=== PATIENT | female | born 1995 | race Caucasian/White ===

== ENCOUNTER 2019-02-06 16:53 | Emergency (ER) | payer BC, MEDICAID ==
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
[2019-02-06] MEDS ORDERED: Sodium Chloride 0.9% 1,000 ML IV ONE (17:02)
[2019-02-06] MEDS ORDERED: Sodium Chloride 0.9% 10 ML Syringe FLUSH PRN (17:02)
[2019-02-06 17:26] VITALS: BP 142/81
[2019-02-06 17:44] LABS: CHLORIDE,CL 107 mmol/L (98-115); SODIUM,NA 145 mmol/L (136-145)
[2019-02-06] MEDS ORDERED: cefTRIAXone 1 GM Vial IVPUSH ONE (19:11)
[2019-02-06] MEDS ORDERED: Phenazopyridine 100 MG Tab PO PRN (19:18)
== END 2019-02-06 19:37 | disposition home or self-care (01) ==
LOC: KA.ED 16:53
DX: N30.00 Acute cystitis without hematuria (principal); E86.0 Dehydration; I10 Essential (primary) hypertension; K21.9 Gastro-esophageal reflux disease without esophagitis; Z79.899 Other long term (current) drug therapy; Z88.8 Allergy status to other drugs, medicaments and biological substances
CPT/HCPCS: 80053; 81001; 83690; 84703; 85025; 87086; 96361; 96374; 99283; A9270; J0696; J7030

== ENCOUNTER 2019-02-14 20:08 | Emergency (ER) | payer BC ==
[2019-02-14 20:26] VITALS: BP 138/84
[2019-02-14] MEDS: Acetaminophen/HYDROcodone 325-5 MG Tab PO ONE (20:55)
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
== END 2019-02-14 21:10 | disposition home or self-care (01) ==
LOC: KA.ED 20:08
DX: S39.011A Strain of muscle, fascia and tendon of abdomen, initial encounter (principal); I10 Essential (primary) hypertension; K21.9 Gastro-esophageal reflux disease without esophagitis; Z88.8 Allergy status to other drugs, medicaments and biological substances; Z79.899 Other long term (current) drug therapy; X50.0XXA Overexertion from strenuous movement or load, initial encounter
CPT/HCPCS: 99283; A9270-GY

== ENCOUNTER 2019-04-24 23:34 | Emergency (ER) | payer BC ==
[2019-04-25] MEDS ORDERED: Sodium Chloride 0.9% 1,000 ML IV ONE
[2019-04-25] MEDS ORDERED: Sodium Chloride 0.9% 10 ML Syringe FLUSH PRN
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
[2019-04-25 00:39] LABS: ANION GAP 12.6 mmol/L (5-15); CHLORIDE,CL 106 mmol/L (98-115); SODIUM,NA 139 mmol/L (136-145)
[2019-04-25] MEDS ORDERED: Metoclopramide 10 MG/2 ML SDV IVPUSH ONE (00:44)
[2019-04-25 02:38] VITALS: BP 128/74
== END 2019-04-25 01:15 | disposition home or self-care (01) ==
LOC: KA.ED 23:34
DX: R10.84 Generalized abdominal pain (principal); I10 Essential (primary) hypertension; K21.9 Gastro-esophageal reflux disease without esophagitis; Z79.899 Other long term (current) drug therapy; Z88.8 Allergy status to other drugs, medicaments and biological substances
CPT/HCPCS: 80053; 81001; 83690; 84702; 85025; 96361; 96374; 99284-25; J2765; J7030

== ENCOUNTER 2020-06-07 12:14 | Emergency (ER) | payer BC ==
[2020-06-07] MEDS ORDERED: Sodium Chloride 0.9% 1,000 ML IV ONE (12:20)
[2020-06-07] MEDS ORDERED: Sodium Chloride 0.9% 10 ML Syringe FLUSH PRN (12:20)
[2020-06-07] MEDS ORDERED: HYDROmorphone 1 MG/ML Syringe IVPUSH ONE ×2 (12:20→13:54)
[2020-06-07 12:51] VITALS: BP 133/72; PULSE 77
[2020-06-07 12:55] LABS: ANION GAP 11.6 mmol/L (5-15); CHLORIDE,CL 104 mmol/L (98-115); SODIUM,NA 138 mmol/L (136-145)
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
[2020-06-07] MEDS ORDERED: HYDROmorphone 1 MG/ML Syringe ONE (13:54)
[2020-06-07] MEDS ORDERED: Iopamidol 755 Mg/ML 100 ML Bottle IV ONE (14:18)
[2020-06-07] MEDS ORDERED: Diatrizoate Meglumine/Diatrizoate Sodium 37% 30 ML Bottle PO ONE (14:18)
[2020-06-07] MEDS ORDERED: Sodium Chloride 0.9% 50 ML IV SCH (14:30)
[2020-06-07] MEDS ORDERED: Ondansetron 4 MG Tab.DIS PO ONE (14:58)
[2020-06-07] MEDS ORDERED: Omeprazole 20 MG Cap.CR PO ONE (15:03)
--- NOTE | 2020-06-07 15:19 | CT ---
[id number] CT/CT Abdomen Pelvis W IV EXAM: CT Abdomen Pelvis W IV CLINICAL DATA: MID-EPIGASTRIC PAIN, DIARRHEA, MILD ANEMIA. 17 MONTHS COMPARISON STUDY: August 06, 2019. FINDINGS: Dependent atelectasis at the lung bases bilaterally. Postsurgical changes following gastric bypass. No evidence of obstruction. No inflammation. The appendix is visualized and appears normal. There are multiple prominent mesenteric lymph nodes especially within the right lower quadrant. The liver, spleen, gallbladder, pancreas, adrenal glands and kidneys are unremarkable. No hydronephrosis or hydroureter. No suspicious renal lesions. No free fluid, or pneumoperitoneum. Scattered changes of spondylosis the spine. No fracture or osseous lesion. IMPRESSION: 1. The appendix is visualized and appears normal. There are multiple prominent right lower quadrant mesenteric lymph nodes. This is nonspecific and could be seen with mesenteric adenitis. Pradip Gerber DO 06/07/20 1517 Thank you for allowing us to participate in the care of your patient.
== END 2020-06-07 15:50 | disposition home or self-care (01) ==
LOC: KA.ED 12:14
DX: R10.13 Epigastric pain (principal); I10 Essential (primary) hypertension; E66.9 Obesity, unspecified; Z88.3 Allergy status to other anti-infective agents; Z88.8 Allergy status to other drugs, medicaments and biological substances; Z68.31 Body mass index [BMI] 31.0-31.9, adult
CPT/HCPCS: 36415; 74177; 80053; 81001; 81025; 83690; 85025; 87086; 96361; 96374; 96376; 99284; 99284-25; A9270-GY; J1170; J7030; J7050; Q9963; Q9967

== ENCOUNTER 2023-07-03 03:40 | Emergency (ER) | payer BC ==
[2023-07-03] MEDS: Sodium Chloride 0.9% 10 ML Syringe FLUSH PRN (04:05)
[2023-07-03] MEDS ORDERED: Sodium Chloride 0.9% 10 ML Syringe FLUSH PRN (04:08)
[2023-07-03] MEDS: Sodium Chloride 0.9% 1,000 ML IV ONE (04:16)
[2023-07-03 04:27] LABS: BASOPHILS ABSOLUTE AUTO 0.02 10^3/uL (0.00-0.10); BASOPHILS PERCENT AUTO 0.3 % (0.0-1.0); EOSINOPHILS ABSOLUTE AUTO 0.03 10^3/uL (0.10-0.30); EOSINOPHILS PERCENT AUTO 0.4 % (1.0-3.0); HEMATOCRIT 40.4 % (37.0-47.0); HEMOGLOBIN 13.2 g/dL (12.0-16.0); IMMATURE GRAN ABSOLUTE AUTO 0.01 10^3/uL (0.00-0.50); IMMATURE GRAN PERCENT AUTO 0.1 % (0.0-5.0); LYMPHOCYTES ABSOLUTE AUTO 0.36 10^3/uL (1.00-4.00); LYMPHOCYTES PERCENT AUTO 5.3 % (20.0-40.0); MEAN CORPUSCULAR HEMOGLOBIN 31.4 pg (27.0-31.0); MEAN CORPUSCULAR HGB CONC 32.7 g/dL (32.0-36.0); MEAN PLATELET VOLUME 10.1 fL (7.4-10.4); MONOCYTES ABSOLUTE AUTO 0.45 10^3/uL (0.10-0.80); MONOCYTES PERCENT AUTO 6.6 % (2.0-8.0); NEUTROPHILS ABSOLUTE AUTO 5.92 10^3/uL (2.50-7.00); NEUTROPHILS PERCENT AUTO 87.3 % (50.0-70.0); PLATELET COUNT,PLT 191 10^3/uL (150-400); RED BLOOD CELL COUNT 4.21 10^6/uL (3.80-5.50); RED CELL DISTRIBUTION WIDTH 12.6 % (11.5-14.5); WHITE BLOOD CELL COUNT,WBC 6.79 10^3/uL (5.00-10.00)
[2023-07-03] MEDS: Ondansetron 4 MG/2 ML SDV IVPUSH ONE (04:31)
[2023-07-03 04:32] LABS: APPEARANCE,URINE CLEAR (CLEAR); BILIRUBIN,URINE NEGATIVE (NEGATIVE); COLOR,URINE YELLOW (YELLOW); GLUCOSE,URINE NEGATIVE (NEGATIVE); KETONES,URINE NEGATIVE (NEGATIVE); LEUKOCYTE ESTERASE,URINE NEGATIVE (NEGATIVE); NITRITE,URINE NEGATIVE (NEGATIVE); OCCULT BLOOD,URINE TRACE-LYSED (NEGATIVE); PH,URINE 5.5 (5.0-9.0); PROTEIN,URINE 30 mg/dL (NEGATIVE); UROBILINOGEN,URINE 0.2 E.U./dL (0.2-1.0)
[2023-07-03] MEDS: Ketorolac 30 MG/ML SDV IVPUSH ONE (04:38)
[2023-07-03 04:39] LABS: BACTERIA,URINE RARE /HPF (NONE TO FEW); EPITHELIAL CELLS,URINE RARE /LPF; MUCUS,URINE FEW /LPF (NEGATIVE); RBC,URINE 0-5 /HPF (0-5); WBC,URINE 0-5 /HPF (0-5)
[2023-07-03 04:47] LABS: ALANINE AMINOTRANSFERASE,ALT 24 U/L (14-63); ALBUMIN 3.73 g/dL (3.40-5.00); ALKALINE PHOSPHATASE 61 U/L (46-116); AMYLASE 49 U/L (25-125); ANION GAP 16.6 mmol/L (5-15); ASPARTATE AMNIOTRANSFERASE,AST 17 U/L (15-37); BILIRUBIN TOTAL 0.3 mg/dL (0.2-1.0); BLOOD UREA NITROGEN,BUN 12 mg/dL (7-18); C-REACTIVE PROTEIN 9.2 mg/dL (0.0-0.9); CALCIUM 8.2 mg/dL (8.7-10.3); CARBON DIOXIDE,CO2 23.4 mmol/L (21.0-32.0); CHLORIDE,CL 101 mmol/L (98-107); CREATININE 0.66 mg/dL (0.51-1.17); GLUCOSE RANDOM 112 mg/dL (70-140); LIPASE 116 U/L (73-393); PROTEIN TOTAL,TP 7.1 g/dL (6.4-8.2); SODIUM,NA 137 mmol/L (136-145)
[2023-07-03 04:48] LABS: ESTIMATED GFR 122 mL/min (>=60); HCG QUANTITATIVE < 1 mIU/mL
[2023-07-03 04:52] VITALS: BP 132/82; PULSE 104
[2023-07-03] MEDS ORDERED: Naloxone 0.4 MG/ML SDV IVPUSH PRN (05:11)
[2023-07-03] MEDS: HYDROmorphone 1 MG/ML Syringe IVPUSH ONE (05:21)
[2023-07-03] MEDS: Sodium Chloride 0.9% 50 ML IV SCH (05:58)
[2023-07-03] MEDS: Iopamidol 755 Mg/ML 100 ML Bottle IV ONE (05:58)
[2023-07-03] MEDS: methylPREDNISolone Sodium Succinate 125 MG/2 ML SDV IVPUSH ONE (06:47)
== END 2023-07-03 07:05 | disposition home or self-care (01) ==
LOC: KA.ED 03:40
DX: K52.9 Noninfective gastroenteritis and colitis, unspecified (principal); I10 Essential (primary) hypertension; E66.9 Obesity, unspecified; Z68.34 Body mass index [BMI] 34.0-34.9, adult; Z88.8 Allergy status to other drugs, medicaments and biological substances
CPT/HCPCS: 36415; 74177; 80053; 81001; 82150; 83690; 84702; 85025; 86140; 96361; 96374; 96375; 99284; 99284-25; J1170; J1885; J2405; J2930; J3490; J7030; Q9967

== ENCOUNTER 2023-07-06 23:18 | Emergency (ER) | payer BC ==
[2023-07-06] MEDS ORDERED: Sodium Chloride 0.9% 1,000 ML IV ONE (23:22)
[2023-07-06] MEDS ORDERED: Sodium Chloride 0.9% 10 ML Syringe FLUSH PRN (23:23)
[2023-07-06] MEDS: Ondansetron 4 MG Tab.DIS PO ONE ×2 (23:26→23:29)
[2023-07-06] MEDS ORDERED: HYDROmorphone 1 MG/ML Syringe IVPUSH ONE (23:37)
[2023-07-06] MEDS ORDERED: HYDROmorphone 2 MG/ML Syringe ONE (23:39)
[2023-07-06 23:43] LABS: BASOPHILS ABSOLUTE AUTO 0.01 10^3/uL (0.00-0.10); BASOPHILS PERCENT AUTO 0.2 % (0.0-1.0); EOSINOPHILS ABSOLUTE AUTO 0.01 10^3/uL (0.10-0.30); EOSINOPHILS PERCENT AUTO 0.2 % (1.0-3.0); HEMATOCRIT 41.6 % (37.0-47.0); HEMOGLOBIN 13.5 g/dL (12.0-16.0); IMMATURE GRAN ABSOLUTE AUTO 0.02 10^3/uL (0.00-0.50); IMMATURE GRAN PERCENT AUTO 0.4 % (0.0-5.0); LYMPHOCYTES ABSOLUTE AUTO 0.67 10^3/uL (1.00-4.00); LYMPHOCYTES PERCENT AUTO 14.9 % (20.0-40.0); MEAN CORPUSCULAR HEMOGLOBIN 30.3 pg (27.0-31.0); MEAN CORPUSCULAR HGB CONC 32.5 g/dL (32.0-36.0); MEAN CORPUSCULAR VOLUME 93.5 fL (82.0-92.0); MEAN PLATELET VOLUME 9.6 fL (7.4-10.4); MONOCYTES ABSOLUTE AUTO 0.56 10^3/uL (0.10-0.80); MONOCYTES PERCENT AUTO 12.4 % (2.0-8.0); NEUTROPHILS ABSOLUTE AUTO 3.24 10^3/uL (2.50-7.00); NEUTROPHILS PERCENT AUTO 71.9 % (50.0-70.0); PLATELET COUNT,PLT 321 10^3/uL (150-400); RED BLOOD CELL COUNT 4.45 10^6/uL (3.80-5.50); RED CELL DISTRIBUTION WIDTH 12.2 % (11.5-14.5); WHITE BLOOD CELL COUNT,WBC 4.51 10^3/uL (5.00-10.00)
[2023-07-06] MEDS ORDERED: Promethazine 12.5 MG in Sodium Chloride 0.9% 100 ML IV PRN (23:49)
[2023-07-06] MEDS ORDERED: Loperamide 2 MG Cap PO PRN (23:50)
[2023-07-06 23:59] LABS: ALBUMIN 3.74 g/dL (3.40-5.00); BILIRUBIN TOTAL 0.3 mg/dL (0.2-1.0); CALCIUM 8.8 mg/dL (8.7-10.3); CARBON DIOXIDE,CO2 26.1 mmol/L (21.0-32.0); CREATININE 0.58 mg/dL (0.51-1.17); EST CRCL DRUG DOSING (CG) 128.78 mL/min; POTASSIUM,K 4.1 mmol/L (3.5-5.1); PROTEIN TOTAL,TP 7.7 g/dL (6.4-8.2)
[2023-07-07] MEDS ORDERED: Sodium Chloride 0.9% 1,000 ML IV ONE (00:51)
[2023-07-07 01:01] VITALS: PULSE 90
[2023-07-07] MEDS ORDERED: HYDROmorphone 1 MG/ML Syringe IVPUSH ONE (01:08)
[2023-07-07] MEDS ORDERED: HYDROmorphone 2 MG Tab PO PRN (02:09)
[2023-07-07 02:22] VITALS: BP 109/71
== END 2023-07-07 02:24 | disposition home or self-care (01) ==
LOC: KA.ED 23:18
DX: K52.9 Noninfective gastroenteritis and colitis, unspecified (principal); R79.82 Elevated C-reactive protein (CRP); E66.9 Obesity, unspecified; Z88.8 Allergy status to other drugs, medicaments and biological substances; Z86.16 Personal history of COVID-19; Z68.34 Body mass index [BMI] 34.0-34.9, adult
CPT/HCPCS: 36415; 80053; 85025; 86140; 87324; 87449; 96361; 96374; 96375; 96376; 99284; 99284-25; A9270-GY; J1170; J2550; J3490; J7030

== ENCOUNTER 2023-09-29 14:04 | Emergency (ER) | payer BC ==
[2023-09-29 14:38] LABS: BASOPHILS ABSOLUTE AUTO 0.04 10^3/uL (0.00-0.10); BASOPHILS PERCENT AUTO 0.6 % (0.0-1.0); EOSINOPHILS ABSOLUTE AUTO 0.09 10^3/uL (0.10-0.30); EOSINOPHILS PERCENT AUTO 1.2 % (1.0-3.0); HEMATOCRIT 37.2 % (37.0-47.0); HEMOGLOBIN 11.9 g/dL (12.0-16.0); IMMATURE GRAN ABSOLUTE AUTO 0.01 10^3/uL (0.00-0.50); IMMATURE GRAN PERCENT AUTO 0.1 % (0.0-5.0); LYMPHOCYTES ABSOLUTE AUTO 1.84 10^3/uL (1.00-4.00); LYMPHOCYTES PERCENT AUTO 25.5 % (20.0-40.0); MEAN CORPUSCULAR HEMOGLOBIN 29.6 pg (27.0-31.0); MEAN CORPUSCULAR VOLUME 92.5 fL (82.0-92.0); MEAN PLATELET VOLUME 9.4 fL (7.4-10.4); MONOCYTES ABSOLUTE AUTO 0.87 10^3/uL (0.10-0.80); MONOCYTES PERCENT AUTO 12.1 % (2.0-8.0); NEUTROPHILS ABSOLUTE AUTO 4.36 10^3/uL (2.50-7.00); NEUTROPHILS PERCENT AUTO 60.5 % (50.0-70.0); PLATELET COUNT,PLT 326 10^3/uL (150-400); RED BLOOD CELL COUNT 4.02 10^6/uL (3.80-5.50); RED CELL DISTRIBUTION WIDTH 13.4 % (11.5-14.5); WHITE BLOOD CELL COUNT,WBC 7.21 10^3/uL (5.00-10.00)
[2023-09-29 14:40] VITALS: BP 141/87
[2023-09-29 14:49] LABS: ANION GAP 15.7 mmol/L (5-15); CALCIUM 8.3 mg/dL (8.7-10.3); CARBON DIOXIDE,CO2 25.3 mmol/L (21.0-32.0); CREATININE 0.58 mg/dL (0.51-1.17); EST CRCL DRUG DOSING (CG) 130.2 mL/min
[2023-09-29 14:58] VITALS: PULSE 92
[2023-09-29] MEDS: predniSONE 20 MG Tab PO ONE (15:47)
== END 2023-09-29 15:58 | disposition home or self-care (01) ==
LOC: KA.ED 14:04
DX: J06.9 Acute upper respiratory infection, unspecified (principal); D50.8 Other iron deficiency anemias; I10 Essential (primary) hypertension; K21.9 Gastro-esophageal reflux disease without esophagitis; F17.210 Nicotine dependence, cigarettes, uncomplicated; E66.9 Obesity, unspecified; Z68.30 Body mass index [BMI] 30.0-30.9, adult; Z86.16 Personal history of COVID-19; Z88.8 Allergy status to other drugs, medicaments and biological substances; Z79.899 Other long term (current) drug therapy
CPT/HCPCS: 36415; 80048; 85025; 99283; J7512

== ENCOUNTER 2023-10-17 06:45 | Emergency (ER) | payer BC ==
[2023-10-17] MEDS ORDERED: LORazepam 0.5 MG Tab PO ONE ×3 (07:02→08:26)
[2023-10-17] MEDS ORDERED: Ondansetron 4 MG Tab.DIS PO ONE (07:32)
[2023-10-17 07:54] VITALS: BP 123/71; PULSE 80
== END 2023-10-17 08:38 | disposition home or self-care (01) ==
LOC: SUPCPDRO 06:45 → KA.ED 06:45
DX: F41.0 Panic disorder [episodic paroxysmal anxiety] (principal); R11.0 Nausea; I10 Essential (primary) hypertension; K21.9 Gastro-esophageal reflux disease without esophagitis; E66.9 Obesity, unspecified; M19.90 Unspecified osteoarthritis, unspecified site; Z86.16 Personal history of COVID-19; Z79.899 Other long term (current) drug therapy; Z88.8 Allergy status to other drugs, medicaments and biological substances; Z88.1 Allergy status to other antibiotic agents; Z91.018 Allergy to other foods; Z68.41 Body mass index [BMI] 40.0-44.9, adult
CPT/HCPCS: 99283; A9270

== ENCOUNTER 2024-09-07 03:38 | Emergency (ER) | payer SELFPAY ==
[~2024-09-07 03:38] MED LIST: Ondansetron 4 MG/2 ML SDV ONE; Sodium Chloride 0.9% 1,000 ML ONE
[2024-09-07] MEDS: Sodium Chloride 0.9% 1,000 ML IV ONE (04:02)
[2024-09-07] MEDS: Ondansetron 4 MG/2 ML SDV IVPUSH ONE (04:02)
[2024-09-07] MEDS ORDERED: Sodium Chloride 0.9% 10 ML Syringe FLUSH PRN (04:04)
[2024-09-07 04:22] LABS: BASOPHILS ABSOLUTE AUTO 0.03 10^3/uL (0.00-0.10); BASOPHILS PERCENT AUTO 0.8 % (0.0-1.0); EOSINOPHILS ABSOLUTE AUTO 0.04 10^3/uL (0.10-0.30); HEMATOCRIT 32.2 % (37.0-47.0); HEMOGLOBIN 9.9 g/dL (12.0-16.0); IMMATURE GRAN ABSOLUTE AUTO 0.01 10^3/uL (0.00-0.50); IMMATURE GRAN PERCENT AUTO 0.3 % (0.0-5.0); LYMPHOCYTES ABSOLUTE AUTO 1.41 10^3/uL (1.00-4.00); LYMPHOCYTES PERCENT AUTO 36.4 % (20.0-40.0); MEAN CORPUSCULAR HEMOGLOBIN 24.2 pg (27.0-31.0); MEAN CORPUSCULAR HGB CONC 30.7 g/dL (32.0-36.0); MEAN CORPUSCULAR VOLUME 78.7 fL (82.0-92.0); MEAN PLATELET VOLUME 9.8 fL (7.4-10.4); MONOCYTES ABSOLUTE AUTO 0.59 10^3/uL (0.10-0.80); MONOCYTES PERCENT AUTO 15.2 % (2.0-8.0); NEUTROPHILS ABSOLUTE AUTO 1.79 10^3/uL (2.50-7.00); NEUTROPHILS PERCENT AUTO 46.3 % (50.0-70.0); PLATELET COUNT,PLT 250 10^3/uL (150-400); RED BLOOD CELL COUNT 4.09 10^6/uL (3.80-5.50); RED CELL DISTRIBUTION WIDTH 14.9 % (11.5-14.5); WHITE BLOOD CELL COUNT,WBC 3.87 10^3/uL (5.00-10.00)
[2024-09-07] MEDS: Metoclopramide 10 MG/2 ML SDV ONE (04:23)
[2024-09-07] MEDS: Metoclopramide 10 MG/2 ML SDV IVPUSH ONE (04:24)
[2024-09-07 04:36] LABS: ALANINE AMINOTRANSFERASE,ALT 50 U/L (14-63); ALBUMIN 3.54 g/dL (3.40-5.00); ALKALINE PHOSPHATASE 75 U/L (46-116); ASPARTATE AMNIOTRANSFERASE,AST 41 U/L (15-37); BILIRUBIN TOTAL 0.4 mg/dL (0.2-1.0); BLOOD UREA NITROGEN,BUN 8 mg/dL (7-18); CALCIUM 8.4 mg/dL (8.7-10.3); CARBON DIOXIDE,CO2 23.7 mmol/L (21.0-32.0); CHLORIDE,CL 102 mmol/L (98-107); CREATININE 0.61 mg/dL (0.51-1.17); EST CRCL DRUG DOSING (CG) 120.24 mL/min; GLUCOSE RANDOM 106 mg/dL (70-140); LIPASE 30 U/L (16-77); POTASSIUM,K 3.7 mmol/L (3.5-5.1); PROTEIN TOTAL,TP 6.8 g/dL (6.4-8.2); SODIUM,NA 138 mmol/L (136-145)
[2024-09-07] MEDS: diphenhydrAMINE 50 MG/ML SDV IVPUSH ONE (04:36)
[2024-09-07 04:37] LABS: ESTIMATED GFR 123 mL/min (>=60)
[2024-09-07 04:38] LABS: APPEARANCE,URINE CLOUDY (CLEAR); BILIRUBIN,URINE SMALL (NEGATIVE); COLOR,URINE YELLOW (YELLOW); GLUCOSE,URINE NEGATIVE (NEGATIVE); KETONES,URINE NEGATIVE (NEGATIVE); LEUKOCYTE ESTERASE,URINE NEGATIVE (NEGATIVE); NITRITE,URINE NEGATIVE (NEGATIVE); OCCULT BLOOD,URINE NEGATIVE (NEGATIVE); PROTEIN,URINE 30 mg/dL (NEGATIVE)
[2024-09-07 04:44] LABS: HCG QUALITATIVE,SERUM NEGATIVE (NEGATIVE)
[2024-09-07 04:48] LABS: RBC,URINE 0-5 /HPF (0-5)
[2024-09-07 04:49] LABS: BACTERIA,URINE FEW /HPF (NONE TO FEW); EPITHELIAL CELLS,URINE MODERATE /LPF; MUCUS,URINE MANY /LPF (NEGATIVE); WBC,URINE 0-5 /HPF (0-5)
[2024-09-07 05:04] VITALS: BP 153/89; PULSE 78
== END 2024-09-07 05:20 | disposition home or self-care (01) ==
LOC: KA.ED 03:38
DX: K52.1 Toxic gastroenteritis and colitis (principal); I10 Essential (primary) hypertension; Z68.45 Body mass index [BMI] 70 or greater, adult; E66.9 Obesity, unspecified; Z86.16 Personal history of COVID-19; Z88.9 Allergy status to unspecified drugs, medicaments and biological substances; Z88.3 Allergy status to other anti-infective agents; Z88.1 Allergy status to other antibiotic agents; Z91.018 Allergy to other foods
CPT/HCPCS: 80053; 81001; 83690; 84703; 85025; 96361; 96374; 96375; 99284-25; J1200; J2405; J2765; J7030

== ENCOUNTER 2024-12-14 17:51 | Inpatient (IN) | payer SELFPAY ==
[2024-12-14] MEDS: Sodium Chloride 0.9% 10 ML Syringe FLUSH PRN (18:09)
[2024-12-14 18:16] LABS: BASOPHILS ABSOLUTE AUTO 0.04 10^3/uL (0.00-0.10); BASOPHILS PERCENT AUTO 1.2 % (0.0-1.0); EOSINOPHILS ABSOLUTE AUTO 0.03 10^3/uL (0.10-0.30); EOSINOPHILS PERCENT AUTO 0.9 % (1.0-3.0); HEMATOCRIT 33.1 % (37.0-47.0); IMMATURE GRAN ABSOLUTE AUTO 0.01 10^3/uL (0.00-0.04); IMMATURE GRAN PERCENT AUTO 0.3 % (0.0-0.4); LYMPHOCYTES ABSOLUTE AUTO 1.78 10^3/uL (1.00-4.00); LYMPHOCYTES PERCENT AUTO 54.8 % (20.0-40.0); MEAN CORPUSCULAR HEMOGLOBIN 23.9 pg (27.0-31.0); MEAN CORPUSCULAR HGB CONC 30.2 g/dL (32.0-36.0); MEAN CORPUSCULAR VOLUME 79.2 fL (82.0-92.0); MEAN PLATELET VOLUME 9.2 fL (7.4-10.4); MONOCYTES ABSOLUTE AUTO 0.38 10^3/uL (0.10-0.80); MONOCYTES PERCENT AUTO 11.7 % (2.0-8.0); NEUTROPHILS ABSOLUTE AUTO 1.01 10^3/uL (2.50-7.00); NEUTROPHILS PERCENT AUTO 31.1 % (50.0-70.0); PLATELET COUNT,PLT 134 10^3/uL (150-400); RED BLOOD CELL COUNT 4.18 10^6/uL (3.80-5.50); WHITE BLOOD CELL COUNT,WBC 3.25 10^3/uL (5.00-10.00)
[2024-12-14] MEDS: Sodium Chloride 0.9% 1,000 ML IV ONE (18:18)
[2024-12-14] MEDS: LORazepam 2 MG/ML SDV IVPUSH ONE (18:20)
[2024-12-14 18:32] LABS: ALANINE AMINOTRANSFERASE,ALT 75 U/L (14-63); ALBUMIN 3.16 g/dL (3.40-5.00); ALKALINE PHOSPHATASE 101 U/L (46-116); ASPARTATE AMNIOTRANSFERASE,AST 170 U/L (15-37); BILIRUBIN TOTAL 0.3 mg/dL (0.2-1.0); BLOOD UREA NITROGEN,BUN 4 mg/dL (7-18); CALCIUM 8.7 mg/dL (8.7-10.3); CARBON DIOXIDE,CO2 30.3 mmol/L (21.0-32.0); CHLORIDE,CL 104 mmol/L (98-107); CREATININE 0.61 mg/dL (0.51-1.17); ESTIMATED GFR 123 mL/min (>=60); GLUCOSE RANDOM 106 mg/dL (70-140); LIPASE 48 U/L (16-77); POTASSIUM,K 4.3 mmol/L (3.5-5.1); PROTEIN TOTAL,TP 6.8 g/dL (6.4-8.2); SODIUM,NA 146 mmol/L (136-145)
[2024-12-14 18:33] LABS: ETHANOL BLOOD MEDICAL 310 mg/dL (<3)
[2024-12-14 18:57] LABS: APPEARANCE,URINE CLEAR (CLEAR); BILIRUBIN,URINE NEGATIVE (NEGATIVE); COLOR,URINE LIGHT YELLOW (YELLOW); GLUCOSE,URINE NEGATIVE (NEGATIVE); KETONES,URINE NEGATIVE (NEGATIVE); LEUKOCYTE ESTERASE,URINE NEGATIVE (NEGATIVE); NITRITE,URINE NEGATIVE (NEGATIVE); OCCULT BLOOD,URINE TRACE-INTACT (NEGATIVE); PROTEIN,URINE NEGATIVE (NEGATIVE); UROBILINOGEN,URINE 0.2 E.U./dL (0.2-1.0)
[2024-12-14 19:08] LABS: AMPHETAMINES SCREEN, URINE NEGATIVE (NEGATIVE); BARBITURATE SCREEN,URINE NEGATIVE (NEGATIVE); BENZODIAZEPINES SCREEN,URINE NEGATIVE (NEGATIVE); COCAINE METABOLITES,URINE NEGATIVE (NEGATIVE); METHADONE SCREEN, URINE NEGATIVE (NEGATIVE); METHAMPHETAMINES SCREEN, URINE NEGATIVE (NEGATIVE); OXYCODONE SCREEN,URINE NEGATIVE (NEGATIVE); PCP SCREEN,URINE NEGATIVE (NEGATIVE); TCA SCREEN,URINE NEGATIVE (NEGATIVE); THC SCREEN,URINE 50 NG/ML NEGATIVE (NEGATIVE)
[2024-12-14] MEDS: LORazepam 0.5 MG Tab PO SCH (21:16)
[2024-12-14] MEDS: Acetaminophen 500 MG Tab PO PRN (22:08)
[2024-12-14] MEDS: Dextrose 5%-0.45% NaCl 1,000 ML IV SCH (22:08)
[2024-12-14] MEDS: Ondansetron 4 MG/2 ML SDV IVPUSH PRN (22:56)
[2024-12-14] MEDS: LORazepam 2 MG/ML SDV IV PRN (22:57)
[2024-12-15 07:36] LABS: BASOPHILS ABSOLUTE AUTO 0.01 10^3/uL (0.00-0.10); BASOPHILS PERCENT AUTO 0.4 % (0.0-1.0); EOSINOPHILS ABSOLUTE AUTO 0.04 10^3/uL (0.10-0.30); EOSINOPHILS PERCENT AUTO 1.7 % (1.0-3.0); HEMATOCRIT 28.3 % (37.0-47.0); HEMOGLOBIN 8.6 g/dL (12.0-16.0); LYMPHOCYTES ABSOLUTE AUTO 0.95 10^3/uL (1.00-4.00); LYMPHOCYTES PERCENT AUTO 39.4 % (20.0-40.0); MEAN CORPUSCULAR HEMOGLOBIN 24.2 pg (27.0-31.0); MEAN CORPUSCULAR HGB CONC 30.4 g/dL (32.0-36.0); MEAN CORPUSCULAR VOLUME 79.7 fL (82.0-92.0); MEAN PLATELET VOLUME 9.3 fL (7.4-10.4); MONOCYTES ABSOLUTE AUTO 0.32 10^3/uL (0.10-0.80); MONOCYTES PERCENT AUTO 13.3 % (2.0-8.0); NEUTROPHILS ABSOLUTE AUTO 1.09 10^3/uL (2.50-7.00); NEUTROPHILS PERCENT AUTO 45.2 % (50.0-70.0); PLATELET COUNT,PLT 86 10^3/uL (150-400); RED BLOOD CELL COUNT 3.55 10^6/uL (3.80-5.50); RED CELL DISTRIBUTION WIDTH 16.1 % (11.5-14.5); WHITE BLOOD CELL COUNT,WBC 2.41 10^3/uL (5.00-10.00)
[2024-12-15 07:48] LABS: ALBUMIN 2.68 g/dL (3.40-5.00); ANION GAP 11.4 mmol/L (5-15); BILIRUBIN TOTAL 0.7 mg/dL (0.2-1.0); CARBON DIOXIDE,CO2 29.8 mmol/L (21.0-32.0); CREATININE 0.65 mg/dL (0.51-1.17); EST CRCL DRUG DOSING (CG) 112.84 mL/min; POTASSIUM,K 4.2 mmol/L (3.5-5.1); PROTEIN TOTAL,TP 5.8 g/dL (6.4-8.2)
[2024-12-15] MEDS: Thiamine 100 MG Tab PO SCH (08:06)
[2024-12-15] MEDS: Folic Acid 1 MG Tab PO SCH (08:06)
[2024-12-16 09:22] LABS: BASOPHILS ABSOLUTE AUTO 0.02 10^3/uL (0.00-0.10); BASOPHILS PERCENT AUTO 0.8 % (0.0-1.0); EOSINOPHILS ABSOLUTE AUTO 0.05 10^3/uL (0.10-0.30); EOSINOPHILS PERCENT AUTO 2.1 % (1.0-3.0); HEMATOCRIT 30.6 % (37.0-47.0); HEMOGLOBIN 9.3 g/dL (12.0-16.0); LYMPHOCYTES ABSOLUTE AUTO 0.88 10^3/uL (1.00-4.00); LYMPHOCYTES PERCENT AUTO 36.8 % (20.0-40.0); MEAN CORPUSCULAR HEMOGLOBIN 24.5 pg (27.0-31.0); MEAN CORPUSCULAR HGB CONC 30.4 g/dL (32.0-36.0); MEAN CORPUSCULAR VOLUME 80.5 fL (82.0-92.0); MEAN PLATELET VOLUME 9.7 fL (7.4-10.4); MONOCYTES ABSOLUTE AUTO 0.33 10^3/uL (0.10-0.80); MONOCYTES PERCENT AUTO 13.8 % (2.0-8.0); NEUTROPHILS ABSOLUTE AUTO 1.11 10^3/uL (2.50-7.00); NEUTROPHILS PERCENT AUTO 46.5 % (50.0-70.0); PLATELET COUNT,PLT 100 10^3/uL (150-400); RED CELL DISTRIBUTION WIDTH 16.1 % (11.5-14.5); WHITE BLOOD CELL COUNT,WBC 2.39 10^3/uL (5.00-10.00)
[2024-12-16 09:36] LABS: ANION GAP 14.8 mmol/L (5-15); CALCIUM 8.4 mg/dL (8.7-10.3); CARBON DIOXIDE,CO2 29.8 mmol/L (21.0-32.0); CREATININE 0.71 mg/dL (0.51-1.17); EST CRCL DRUG DOSING (CG) 103.31 mL/min; POTASSIUM,K 3.6 mmol/L (3.5-5.1)
[2024-12-16] MEDS ORDERED: hydrALAZINE 20 MG/ML SDV IVPUSH PRN (10:23)
[2024-12-16] MEDS: Pantoprazole 40 MG Tab.CR PO SCH (11:14)
[2024-12-16 19:25] VITALS: BP 144/104; PULSE 129
[2024-12-16] MEDS ORDERED: Labetalol 100 MG/20 ML MDV IVPUSH PRN (19:29)
[2024-12-16] MEDS: chlordiazePOXIDE 25 MG Cap PO SCH (19:51)
[2024-12-16] MEDS: Thiamine 500 MG in Sodium Chloride 0.9% 100 ML IV SCH (20:02)
[2024-12-16] MEDS: Sodium Chloride 0.9% 1,000 ML IV ONE (20:03)
[2024-12-16] MEDS: Dextrose 5%-0.9% NaCl 1,000 ML IV SCH (20:45)
[2024-12-17] MEDS ORDERED: Pantoprazole 40 MG Tab.CR PO SCH (10:18)
[2024-12-17] MEDS ORDERED: chlordiazePOXIDE 25 MG Cap PO SCH (19:30)
== END 2024-12-16 21:08 | DRG 897 ==
LOC: KA.ED 17:51 → KA.MS 19:22
PROVIDERS: ADMIT Family Medicine; ATTEND Family Medicine
DX: F10.131 Alcohol abuse with withdrawal delirium (principal); Z68.42 Body mass index [BMI] 45.0-49.9, adult; D61.818 Other pancytopenia; M19.90 Unspecified osteoarthritis, unspecified site; I10 Essential (primary) hypertension; F41.9 Anxiety disorder, unspecified; H54.7 Unspecified visual loss; F32.A Depression, unspecified; E66.9 Obesity, unspecified; R74.01 Elevation of levels of liver transaminase levels; D50.9 Iron deficiency anemia, unspecified; R79.89 Other specified abnormal findings of blood chemistry; Z88.8 Allergy status to other drugs, medicaments and biological substances; Z79.1 Long term (current) use of non-steroidal anti-inflammatories (NSAID); Z79.899 Other long term (current) drug therapy; Z98.890 Other specified postprocedural states; Z98.84 Bariatric surgery status; Z86.16 Personal history of COVID-19; Z87.81 Personal history of (healed) traumatic fracture
CPT/HCPCS: 36415; 80048; 80053; 80305-QW; 80307; 81003; 81025; 83690; 85025; 85046; 85610; 96361; 96374; 99284; 99285-25; A9270-GY; J2060; J2405; J3411; J7030; J7042; J7799; Q3014

== ENCOUNTER 2025-01-18 17:24 | Observation (INO) | payer MEDICAID ==
[2025-01-18] MEDS ORDERED: Sodium Chloride 0.9% 10 ML Syringe FLUSH PRN (17:32)
[2025-01-18 18:10] LABS: BASOPHILS ABSOLUTE AUTO 0.05 10^3/uL (0.00-0.10); BASOPHILS PERCENT AUTO 0.8 % (0.0-1.0); EOSINOPHILS ABSOLUTE AUTO 0.02 10^3/uL (0.10-0.30); EOSINOPHILS PERCENT AUTO 0.3 % (1.0-3.0); HEMATOCRIT 35.5 % (37.0-47.0); HEMOGLOBIN 11.2 g/dL (12.0-16.0); IMMATURE GRAN ABSOLUTE AUTO 0.01 10^3/uL (0.00-0.04); IMMATURE GRAN PERCENT AUTO 0.2 % (0.0-0.4); LYMPHOCYTES ABSOLUTE AUTO 2.74 10^3/uL (1.00-4.00); LYMPHOCYTES PERCENT AUTO 45.7 % (20.0-40.0); MEAN CORPUSCULAR HEMOGLOBIN 24.1 pg (27.0-31.0); MEAN CORPUSCULAR HGB CONC 31.5 g/dL (32.0-36.0); MEAN CORPUSCULAR VOLUME 76.5 fL (82.0-92.0); MEAN PLATELET VOLUME 9.7 fL (7.4-10.4); MONOCYTES ABSOLUTE AUTO 0.42 10^3/uL (0.10-0.80); NEUTROPHILS ABSOLUTE AUTO 2.75 10^3/uL (2.50-7.00); PLATELET COUNT,PLT 315 10^3/uL (150-400); RED BLOOD CELL COUNT 4.64 10^6/uL (3.80-5.50); RED CELL DISTRIBUTION WIDTH 15.7 % (11.5-14.5); WHITE BLOOD CELL COUNT,WBC 5.99 10^3/uL (5.00-10.00)
[2025-01-18] MEDS: Sodium Chloride 0.9% 1,000 ML IV ONE (18:10)
[2025-01-18 18:25] LABS: ALBUMIN 3.53 g/dL (3.40-5.00); ANION GAP 21.2 mmol/L (5-15); BILIRUBIN TOTAL 0.2 mg/dL (0.2-1.0); CALCIUM 8.7 mg/dL (8.7-10.3); CARBON DIOXIDE,CO2 22.9 mmol/L (21.0-32.0); CREATININE 0.6 mg/dL (0.51-1.17); EST CRCL DRUG DOSING (CG) 123.48 mL/min; MAGNESIUM 1.7 mg/dL (1.8-2.4); POTASSIUM,K 3.1 mmol/L (3.5-5.1); PROTEIN TOTAL,TP 7.3 g/dL (6.4-8.2)
[2025-01-18] MEDS: Ondansetron 4 MG/2 ML SDV IVPUSH ONE (18:38)
[2025-01-18] MEDS: Folic Acid 50 MG/10 ML MDV IV STA (19:13)
[2025-01-18] MEDS: D5 1/2 NS w/ 40 mEq/L KCl 1,000 ML IV SCH (19:14)
[2025-01-18] MEDS: Thiamine 100 MG in Sodium Chloride 0.9% 100 ML IV ONE (19:15)
[2025-01-18] MEDS: Metoclopramide 10 MG/2 ML SDV IVPUSH ONE (19:18)
[2025-01-18] MEDS: Magnesium Sulf/Wat 2 GM/50 mL 2 GM in Premix Bag 1 BAG IV ONE (20:20)
[2025-01-18 20:53] VITALS: BP 135/71; PULSE 69
[2025-01-19 02:16] LABS: APPEARANCE,URINE CLEAR (CLEAR); BILIRUBIN,URINE NEGATIVE (NEGATIVE); COLOR,URINE YELLOW (YELLOW); GLUCOSE,URINE NEGATIVE (NEGATIVE); KETONES,URINE NEGATIVE (NEGATIVE); LEUKOCYTE ESTERASE,URINE NEGATIVE (NEGATIVE); NITRITE,URINE NEGATIVE (NEGATIVE); OCCULT BLOOD,URINE NEGATIVE (NEGATIVE); PROTEIN,URINE NEGATIVE (NEGATIVE); UROBILINOGEN,URINE 0.2 E.U./dL (0.2-1.0)
[2025-01-19 02:28] LABS: AMPHETAMINES SCREEN, URINE NEGATIVE (NEGATIVE); BARBITURATE SCREEN,URINE NEGATIVE (NEGATIVE); BENZODIAZEPINES SCREEN,URINE NEGATIVE (NEGATIVE); COCAINE METABOLITES,URINE NEGATIVE (NEGATIVE); METHADONE SCREEN, URINE NEGATIVE (NEGATIVE); METHAMPHETAMINES SCREEN, URINE NEGATIVE (NEGATIVE); OXYCODONE SCREEN,URINE NEGATIVE (NEGATIVE); PCP SCREEN,URINE NEGATIVE (NEGATIVE); TCA SCREEN,URINE NEGATIVE (NEGATIVE); THC SCREEN,URINE 50 NG/ML NEGATIVE (NEGATIVE)
== END 2025-01-18 20:46 | disposition left against medical advice (07) ==
LOC: KA.ED 17:24 → KA.MS 20:41
PROVIDERS: ADMIT Internal Medicine; ATTEND Internal Medicine
DX: F10.921 Alcohol use, unspecified with intoxication delirium (principal); I10 Essential (primary) hypertension; E66.9 Obesity, unspecified; Z53.29 Procedure and treatment not carried out because of patient's decision for other reasons; Z88.8 Allergy status to other drugs, medicaments and biological substances; Z68.30 Body mass index [BMI] 30.0-30.9, adult; Z79.899 Other long term (current) drug therapy
CPT/HCPCS: 36415; 80053; 80305; 80307; 81003; 81025; 83690; 83735; 85025; 96361; 96365; 96368; 96375; 99283; 99285; J2405; J2765; J3411; J3475; J3480; J7030; J3490

== ENCOUNTER 2025-01-19 10:35 | Inpatient (IN) | payer MEDICAID ==
[2025-01-19] MEDS: Ondansetron 4 MG/2 ML SDV IVPUSH ONE ×3 (11:26→18:03)
[2025-01-19] MEDS: LORazepam 2 MG/ML SDV IVPUSH ONE ×2 (11:29→13:57)
[2025-01-19 11:31] LABS: BASOPHILS ABSOLUTE AUTO 0.03 10^3/uL (0.00-0.10); BASOPHILS PERCENT AUTO 0.4 % (0.0-1.0); EOSINOPHILS ABSOLUTE AUTO 0.01 10^3/uL (0.10-0.30); EOSINOPHILS PERCENT AUTO 0.1 % (1.0-3.0); HEMATOCRIT 30.7 % (37.0-47.0); HEMOGLOBIN 9.5 g/dL (12.0-16.0); IMMATURE GRAN ABSOLUTE AUTO 0.01 10^3/uL (0.00-0.04); IMMATURE GRAN PERCENT AUTO 0.1 % (0.0-0.4); LYMPHOCYTES ABSOLUTE AUTO 1.12 10^3/uL (1.00-4.00); MEAN CORPUSCULAR HEMOGLOBIN 23.8 pg (27.0-31.0); MEAN CORPUSCULAR HGB CONC 30.9 g/dL (32.0-36.0); MEAN CORPUSCULAR VOLUME 76.9 fL (82.0-92.0); MEAN PLATELET VOLUME 9.8 fL (7.4-10.4); MONOCYTES ABSOLUTE AUTO 0.58 10^3/uL (0.10-0.80); MONOCYTES PERCENT AUTO 8.3 % (2.0-8.0); NEUTROPHILS ABSOLUTE AUTO 5.25 10^3/uL (2.50-7.00); NEUTROPHILS PERCENT AUTO 75.1 % (50.0-70.0); PLATELET COUNT,PLT 235 10^3/uL (150-400); RED BLOOD CELL COUNT 3.99 10^6/uL (3.80-5.50)
[2025-01-19] MEDS: Sodium Chloride 0.9% 1,000 ML IV ONE (11:35)
[2025-01-19 12:07] LABS: ALANINE AMINOTRANSFERASE,ALT 272 U/L (14-63); ALBUMIN 3.47 g/dL (3.40-5.00); ALKALINE PHOSPHATASE 106 U/L (46-116); ANION GAP 18.2 mmol/L (5-15); ASPARTATE AMNIOTRANSFERASE,AST 259 U/L (15-37); BILIRUBIN TOTAL 0.4 mg/dL (0.2-1.0); BLOOD UREA NITROGEN,BUN 5 mg/dL (7-18); CALCIUM 8.5 mg/dL (8.7-10.3); CARBON DIOXIDE,CO2 24.5 mmol/L (21.0-32.0); CHLORIDE,CL 100 mmol/L (98-107); CREATININE 0.62 mg/dL (0.51-1.17); GLUCOSE RANDOM 107 mg/dL (70-140); POTASSIUM,K 3.7 mmol/L (3.5-5.1); PROTEIN TOTAL,TP 6.7 g/dL (6.4-8.2); SODIUM,NA 139 mmol/L (136-145)
[2025-01-19 12:18] LABS: ESTIMATED GFR 122 mL/min (>=60); ETHANOL BLOOD MEDICAL < 3 mg/dL (<3)
[2025-01-19 14:01] LABS: AMPHETAMINES SCREEN, URINE NEGATIVE (NEGATIVE); BARBITURATE SCREEN,URINE NEGATIVE (NEGATIVE); BENZODIAZEPINES SCREEN,URINE NEGATIVE (NEGATIVE); COCAINE METABOLITES,URINE NEGATIVE (NEGATIVE); METHADONE SCREEN, URINE NEGATIVE (NEGATIVE); METHAMPHETAMINES SCREEN, URINE NEGATIVE (NEGATIVE); OXYCODONE SCREEN,URINE NEGATIVE (NEGATIVE); PCP SCREEN,URINE NEGATIVE (NEGATIVE); TCA SCREEN,URINE POSITIVE (NEGATIVE); THC SCREEN,URINE 50 NG/ML NEGATIVE (NEGATIVE)
[2025-01-19] MEDS: Ondansetron 4 MG/2 ML SDV IV PRN (22:16)
[2025-01-19] MEDS: LORazepam 2 MG/ML SDV IV PRN (22:17)
[2025-01-19] MEDS: amLODIPine 5 MG Tab PO SCH (22:18)
[2025-01-20 06:29] VITALS: BP 153/90; PULSE 106
[2025-01-20 07:31] LABS: BASOPHILS ABSOLUTE AUTO 0.04 10^3/uL (0.00-0.10); EOSINOPHILS ABSOLUTE AUTO 0.11 10^3/uL (0.10-0.30); EOSINOPHILS PERCENT AUTO 2.7 % (1.0-3.0); HEMOGLOBIN 9.4 g/dL (12.0-16.0); LYMPHOCYTES ABSOLUTE AUTO 1.54 10^3/uL (1.00-4.00); LYMPHOCYTES PERCENT AUTO 38.1 % (20.0-40.0); MEAN CORPUSCULAR HEMOGLOBIN 23.7 pg (27.0-31.0); MEAN CORPUSCULAR HGB CONC 30.3 g/dL (32.0-36.0); MEAN CORPUSCULAR VOLUME 78.1 fL (82.0-92.0); MONOCYTES ABSOLUTE AUTO 0.41 10^3/uL (0.10-0.80); MONOCYTES PERCENT AUTO 10.1 % (2.0-8.0); NEUTROPHILS ABSOLUTE AUTO 1.94 10^3/uL (2.50-7.00); NEUTROPHILS PERCENT AUTO 48.1 % (50.0-70.0); PLATELET COUNT,PLT 207 10^3/uL (150-400); RED BLOOD CELL COUNT 3.97 10^6/uL (3.80-5.50); RED CELL DISTRIBUTION WIDTH 15.9 % (11.5-14.5); WHITE BLOOD CELL COUNT,WBC 4.04 10^3/uL (5.00-10.00)
[2025-01-20] MEDS: Acetaminophen 325 MG Tab PO ONE (07:49)
[2025-01-20 08:36] LABS: A/G RATIO 0.9; ALBUMIN 2.9 g/dL (3.40-5.00); ANION GAP 14.3 mmol/L (5-15); BILIRUBIN DIRECT 0.2 mg/dL (0.0-0.2); BILIRUBIN INDIRECT 0.4 mg/dL; BILIRUBIN TOTAL 0.6 mg/dL (0.2-1.0); CALCIUM 8.5 mg/dL (8.7-10.3); CARBON DIOXIDE,CO2 30.2 mmol/L (21.0-32.0); CREATININE 0.7 mg/dL (0.51-1.17); EST CRCL DRUG DOSING (CG) 101.56 mL/min; POTASSIUM,K 3.5 mmol/L (3.5-5.1); PROTEIN TOTAL,TP 6.1 g/dL (6.4-8.2)
[2025-01-20] MEDS ORDERED: Enoxaparin 40 MG/0.4 ML Syringe SUBCUT SCH (09:00)
[2025-01-20] MEDS ORDERED: Multivitamins with Minerals/Iron/Folic Acid/Lycopene Tab PO SCH (09:00)
[2025-01-20] MEDS ORDERED: Sertraline 50 MG Tab PO SCH (09:00)
[2025-01-20] MEDS ORDERED: Gabapentin 300 MG Cap PO SCH (09:00)
[2025-01-20] MEDS ORDERED: Folic Acid 1 MG Tab PO SCH (09:00)
[2025-01-20] MEDS ORDERED: Thiamine 100 MG Tab PO SCH (09:00)
[2025-01-20] MEDS ORDERED: risperiDONE 0.25 MG Tab PO SCH (21:00)
== END 2025-01-20 07:53 | DRG 897 ==
LOC: KA.ED 10:35 → KA.MS 20:35 → UNDOADMIN 21:31 → KA.MS 21:31 → UNDODISIN 01-20 07:53
PROVIDERS: ADMIT Internal Medicine; ATTEND Internal Medicine
DX: F10.931 Alcohol use, unspecified with withdrawal delirium (principal); F10.131 Alcohol abuse with withdrawal delirium; H54.7 Unspecified visual loss; I10 Essential (primary) hypertension; F41.9 Anxiety disorder, unspecified; F32.A Depression, unspecified; G89.29 Other chronic pain; M19.90 Unspecified osteoarthritis, unspecified site; E66.9 Obesity, unspecified; F17.210 Nicotine dependence, cigarettes, uncomplicated; D64.9 Anemia, unspecified; R74.01 Elevation of levels of liver transaminase levels; Z79.51 Long term (current) use of inhaled steroids; Z86.16 Personal history of COVID-19; Z88.8 Allergy status to other drugs, medicaments and biological substances; Z98.84 Bariatric surgery status; Z91.018 Allergy to other foods; Z79.899 Other long term (current) drug therapy; Z79.1 Long term (current) use of non-steroidal anti-inflammatories (NSAID); Z87.81 Personal history of (healed) traumatic fracture
CPT/HCPCS: 36415; 80048; 80053; 80074; 80076; 80305-QW; 80307; 82728; 83540; 83550; 85025; 96361; 96374; 96375; 96376; 99285-25; A9270-GY; J2060; J2405; J7030

== ENCOUNTER 2025-03-23 16:43 | Emergency (ER) | payer MEDICAID ==
[2025-03-23] MEDS ORDERED: Sodium Chloride 0.9% 10 ML Syringe FLUSH PRN (16:50)
[2025-03-23 17:03] LABS: BASOPHILS ABSOLUTE AUTO 0.05 10^3/uL (0.00-0.10); BASOPHILS PERCENT AUTO 0.9 % (0.0-1.0); EOSINOPHILS ABSOLUTE AUTO 0.06 10^3/uL (0.10-0.30); EOSINOPHILS PERCENT AUTO 1.1 % (1.0-3.0); HEMATOCRIT 32.1 % (37.0-47.0); HEMOGLOBIN 9.7 g/dL (12.0-16.0); IMMATURE GRAN ABSOLUTE AUTO 0.02 10^3/uL (0.00-0.04); IMMATURE GRAN PERCENT AUTO 0.4 % (0.0-0.4); LYMPHOCYTES ABSOLUTE AUTO 2.61 10^3/uL (1.00-4.00); MEAN CORPUSCULAR HEMOGLOBIN 22.4 pg (27.0-31.0); MEAN CORPUSCULAR HGB CONC 30.2 g/dL (32.0-36.0); MEAN PLATELET VOLUME 9.6 fL (7.4-10.4); MONOCYTES ABSOLUTE AUTO 0.53 10^3/uL (0.10-0.80); MONOCYTES PERCENT AUTO 9.7 % (2.0-8.0); NEUTROPHILS ABSOLUTE AUTO 2.17 10^3/uL (2.50-7.00); NEUTROPHILS PERCENT AUTO 39.9 % (50.0-70.0); PLATELET COUNT,PLT 400 10^3/uL (150-400); RED BLOOD CELL COUNT 4.34 10^6/uL (3.80-5.50); RED CELL DISTRIBUTION WIDTH 15.7 % (11.5-14.5); WHITE BLOOD CELL COUNT,WBC 5.44 10^3/uL (5.00-10.00)
[2025-03-23] MEDS: Sodium Chloride 0.9% 1,000 ML IV ONE (17:20)
[2025-03-23 17:21] LABS: ALANINE AMINOTRANSFERASE,ALT 69 U/L (14-63); ALBUMIN 3.46 g/dL (3.40-5.00); ALKALINE PHOSPHATASE 84 U/L (46-116); ANION GAP 17.7 mmol/L (5-15); ASPARTATE AMNIOTRANSFERASE,AST 48 U/L (15-37); BILIRUBIN TOTAL 0.1 mg/dL (0.2-1.0); BLOOD UREA NITROGEN,BUN 7 mg/dL (7-18); CALCIUM 8.8 mg/dL (8.7-10.3); CHLORIDE,CL 107 mmol/L (98-107); CREATININE 0.49 mg/dL (0.51-1.17); ESTIMATED GFR 129 mL/min (>=60); GLUCOSE RANDOM 110 mg/dL (70-140); POTASSIUM,K 3.7 mmol/L (3.5-5.1); SODIUM,NA 145 mmol/L (136-145)
[2025-03-23 17:22] LABS: ETHANOL BLOOD MEDICAL 357 mg/dL (<3)
[2025-03-23] MEDS: Ondansetron 4 MG/2 ML SDV IVPUSH ONE (17:36)
[2025-03-23] MEDS: Ketorolac 30 MG/ML SDV IVPUSH ONE (17:38)
[2025-03-23 18:04] VITALS: BP 118/61; PULSE 93
[2025-03-23] MEDS: LORazepam 2 MG/ML SDV IVPUSH ONE (18:27)
[2025-03-23 18:47] LABS: AMPHETAMINES SCREEN, URINE NEGATIVE (NEGATIVE); BARBITURATE SCREEN,URINE NEGATIVE (NEGATIVE); BENZODIAZEPINES SCREEN,URINE NEGATIVE (NEGATIVE); COCAINE METABOLITES,URINE NEGATIVE (NEGATIVE); METHADONE SCREEN, URINE NEGATIVE (NEGATIVE); METHAMPHETAMINES SCREEN, URINE NEGATIVE (NEGATIVE); OXYCODONE SCREEN,URINE NEGATIVE (NEGATIVE); PCP SCREEN,URINE NEGATIVE (NEGATIVE); TCA SCREEN,URINE POSITIVE (NEGATIVE); THC SCREEN,URINE 50 NG/ML NEGATIVE (NEGATIVE)
== END 2025-03-23 18:51 ==
LOC: KA.ED 16:43
DX: F32.A Depression, unspecified (principal); F10.120 Alcohol abuse with intoxication, uncomplicated; I10 Essential (primary) hypertension; F17.210 Nicotine dependence, cigarettes, uncomplicated; Z86.16 Personal history of COVID-19; Z88.8 Allergy status to other drugs, medicaments and biological substances; Z91.048 Other nonmedicinal substance allergy status; Z79.899 Other long term (current) drug therapy; Y90.9 Presence of alcohol in blood, level not specified
CPT/HCPCS: 36415; 73630-LT; 80053; 80305-QW; 80307; 83735; 85025; 96374; 96375; 99284; 99285-25; J1885; J2060; J2405; J7030

== ENCOUNTER 2025-03-25 20:28 | Emergency (ER) | payer MEDICAID ==
[2025-03-25 20:59] LABS: BASOPHILS ABSOLUTE AUTO 0.04 10^3/uL (0.00-0.10); BASOPHILS PERCENT AUTO 0.6 % (0.0-1.0); EOSINOPHILS ABSOLUTE AUTO 0.01 10^3/uL (0.10-0.30); EOSINOPHILS PERCENT AUTO 0.2 % (1.0-3.0); HEMATOCRIT 30.5 % (37.0-47.0); HEMOGLOBIN 9.1 g/dL (12.0-16.0); IMMATURE GRAN ABSOLUTE AUTO 0.02 10^3/uL (0.00-0.04); IMMATURE GRAN PERCENT AUTO 0.3 % (0.0-0.4); LYMPHOCYTES ABSOLUTE AUTO 1.21 10^3/uL (1.00-4.00); LYMPHOCYTES PERCENT AUTO 18.2 % (20.0-40.0); MEAN CORPUSCULAR HEMOGLOBIN 22.1 pg (27.0-31.0); MEAN CORPUSCULAR HGB CONC 29.8 g/dL (32.0-36.0); MEAN PLATELET VOLUME 9.1 fL (7.4-10.4); MONOCYTES ABSOLUTE AUTO 0.48 10^3/uL (0.10-0.80); MONOCYTES PERCENT AUTO 7.2 % (2.0-8.0); NEUTROPHILS PERCENT AUTO 73.5 % (50.0-70.0); RED BLOOD CELL COUNT 4.12 10^6/uL (3.80-5.50); WHITE BLOOD CELL COUNT,WBC 6.66 10^3/uL (5.00-10.00)
[2025-03-25 21:10] LABS: PLATELET COUNT,PLT 276 10^3/uL (150-400)
[2025-03-25 21:11] LABS: RED CELL DISTRIBUTION WIDTH 15.5 % (11.5-14.5)
[2025-03-25 21:14] LABS: ALANINE AMINOTRANSFERASE,ALT 63 U/L (14-63); ALBUMIN 3.43 g/dL (3.40-5.00); ALKALINE PHOSPHATASE 106 U/L (46-116); ANION GAP 15.6 mmol/L (5-15); ASPARTATE AMNIOTRANSFERASE,AST 32 U/L (15-37); BILIRUBIN TOTAL 0.2 mg/dL (0.2-1.0); BLOOD UREA NITROGEN,BUN 5 mg/dL (7-18); CALCIUM 8.9 mg/dL (8.7-10.3); CARBON DIOXIDE,CO2 28.3 mmol/L (21.0-32.0); CHLORIDE,CL 102 mmol/L (98-107); ESTIMATED GFR 123 mL/min (>=60); GLUCOSE RANDOM 107 mg/dL (70-140); POTASSIUM,K 3.9 mmol/L (3.5-5.1); SODIUM,NA 142 mmol/L (136-145)
[2025-03-25 21:15] LABS: ETHANOL BLOOD MEDICAL 202 mg/dL (<3)
[2025-03-25 22:05] VITALS: BP 144/99; PULSE 125
== END 2025-03-25 22:05 | disposition home or self-care (01) ==
LOC: KA.ED 20:28
DX: F10.920 Alcohol use, unspecified with intoxication, uncomplicated (principal); I10 Essential (primary) hypertension; E66.9 Obesity, unspecified; M19.90 Unspecified osteoarthritis, unspecified site; F17.200 Nicotine dependence, unspecified, uncomplicated; Z88.8 Allergy status to other drugs, medicaments and biological substances; Z79.899 Other long term (current) drug therapy; Z79.1 Long term (current) use of non-steroidal anti-inflammatories (NSAID); Z86.16 Personal history of COVID-19; Z68.41 Body mass index [BMI] 40.0-44.9, adult
CPT/HCPCS: 36415; 80053; 80307; 85025; 99284

== ENCOUNTER 2025-04-23 15:49 | Inpatient (IN) | payer MEDICAID ==
[2025-04-23] MEDS ORDERED: Ondansetron 4 MG Tab.DIS PO PRN (17:51)
[2025-04-23] MEDS ORDERED: Sodium Chloride 0.9% 10 ML Syringe FLUSH PRN (17:51)
[2025-04-23] MEDS ORDERED: Propranolol 20 MG Tab PO PRN (17:55)
[2025-04-23 18:39] LABS: ANION GAP 15.5 mmol/L (5-15); CALCIUM 8.4 mg/dL (8.7-10.3); CARBON DIOXIDE,CO2 22.9 mmol/L (21.0-32.0); CREATININE 0.6 mg/dL (0.51-1.17); EST CRCL DRUG DOSING (CG) 122.25 mL/min; MAGNESIUM 1.5 mg/dL (1.8-2.4); PHOSPHORUS 3.4 mg/dL (2.6-4.7); POTASSIUM,K 3.4 mmol/L (3.5-5.1)
[2025-04-23] MEDS: chlordiazePOXIDE 25 MG Cap PO SCH (19:12)
[2025-04-23] MEDS: Pantoprazole 40 MG Tab.CR PO SCH (19:12)
[2025-04-23] MEDS: LORazepam 2 MG/ML SDV IV PRN (19:25)
[2025-04-23] MEDS: Nicotine 14 MG/24 Hr Patch TRDERM SCH (21:24)
[2025-04-24] MEDS: Ondansetron 4 MG/2 ML SDV IV PRN (03:19)
[2025-04-24 07:52] LABS: APPEARANCE,URINE CLOUDY (CLEAR); BILIRUBIN,URINE NEGATIVE (NEGATIVE); COLOR,URINE YELLOW (YELLOW); GLUCOSE,URINE NEGATIVE (NEGATIVE); KETONES,URINE NEGATIVE (NEGATIVE); LEUKOCYTE ESTERASE,URINE TRACE (NEGATIVE); NITRITE,URINE POSITIVE (NEGATIVE); OCCULT BLOOD,URINE TRACE-INTACT (NEGATIVE); PROTEIN,URINE TRACE mg/dL (NEGATIVE); UROBILINOGEN,URINE 0.2 E.U./dL (0.2-1.0)
[2025-04-24 08:04] LABS: BACTERIA,URINE MANY /HPF (NONE TO FEW); EPITHELIAL CELLS,URINE MODERATE /LPF; RBC,URINE 0-5 /HPF (0-5)
[2025-04-24] MEDS: Folic Acid 1 MG Tab PO SCH (08:12)
[2025-04-24] MEDS: amLODIPine 5 MG Tab PO SCH (08:12)
[2025-04-24] MEDS: cefTRIAXone 1 GM in Sodium Chloride 0.9% 50 ML IV SCH (10:52)
[2025-04-24] MEDS: Sodium Chloride 0.9% 100 ML ONE (11:05)
[2025-04-24] MEDS: Sodium Chloride 0.9% 1,000 ML IV SCH (11:09)
[2025-04-24] MEDS ORDERED: Sodium Chloride 0.9% 1,000 ML IV SCH (11:15)
[2025-04-24] MEDS: Magnesium Sulfate 2 GM/50 mL 2 GM in Premix Bag 1 BAG IV ONE (12:11)
[2025-04-24] MEDS: Acetaminophen 325 MG Tab PO PRN (18:31)
[2025-04-24] MEDS: Phenazopyridine 95 MG Tab PO SCH (20:50)
[2025-04-24] MEDS: diphenhydrAMINE 25 MG Cap PO PRN (20:53)
[2025-04-24] MEDS: SUMAtriptan 25 MG Tab PO PRN (22:21)
[2025-04-25 09:29] VITALS: BP 134/94; PULSE 91
== END 2025-04-25 10:35 | disposition home or self-care (01) | DRG 897 ==
LOC: KA.MS 17:35
PROVIDERS: ADMIT Family Medicine; ATTEND Family Medicine
PROC: HZ2ZZZZ Detoxification Services for Substance Abuse Treatment (ICD-10-PCS; principal; 2025-04-23)
DX: F10.131 Alcohol abuse with withdrawal delirium (principal); K50.90 Crohn's disease, unspecified, without complications; N39.0 Urinary tract infection, site not specified; Z68.41 Body mass index [BMI] 40.0-44.9, adult; D50.8 Other iron deficiency anemias; F41.8 Other specified anxiety disorders; H54.7 Unspecified visual loss; I10 Essential (primary) hypertension; M19.90 Unspecified osteoarthritis, unspecified site; M54.9 Dorsalgia, unspecified; G89.29 Other chronic pain; F32.A Depression, unspecified; E66.9 Obesity, unspecified; K21.9 Gastro-esophageal reflux disease without esophagitis; E83.42 Hypomagnesemia; E86.0 Dehydration; Z88.8 Allergy status to other drugs, medicaments and biological substances; Z79.899 Other long term (current) drug therapy; Z86.16 Personal history of COVID-19; Z72.0 Tobacco use; Z98.890 Other specified postprocedural states
CPT/HCPCS: 36415; 80048; 81001; 83735; 84100; 87086; 87088; 99223-GT; 99233-GT; 99239-GT; A9270-GY; J0696; J2060; J2405; J3475; J7030; Q3014

== ENCOUNTER 2025-06-21 14:06 | Inpatient (IN) | payer MEDICAID ==
[2025-06-21 14:39] LABS: BASOPHILS ABSOLUTE AUTO 0.05 10^3/uL (0.00-0.10); BASOPHILS PERCENT AUTO 0.9 % (0.0-1.0); EOSINOPHILS ABSOLUTE AUTO 0.17 10^3/uL (0.10-0.30); EOSINOPHILS PERCENT AUTO 3.2 % (1.0-3.0); IMMATURE GRAN ABSOLUTE AUTO 0.01 10^3/uL (0.00-0.04); IMMATURE GRAN PERCENT AUTO 0.2 % (0.0-0.4); LYMPHOCYTES ABSOLUTE AUTO 2.98 10^3/uL (1.00-4.00); LYMPHOCYTES PERCENT AUTO 55.4 % (20.0-40.0); MEAN PLATELET VOLUME 9.3 fL (7.4-10.4); MONOCYTES ABSOLUTE AUTO 0.56 10^3/uL (0.10-0.80); MONOCYTES PERCENT AUTO 10.4 % (2.0-8.0); NEUTROPHILS ABSOLUTE AUTO 1.61 10^3/uL (2.50-7.00); NEUTROPHILS PERCENT AUTO 29.9 % (50.0-70.0); PLATELET COUNT,PLT 275 10^3/uL (150-400); RED BLOOD CELL COUNT 4.64 10^6/uL (3.80-5.50); RED CELL DISTRIBUTION WIDTH 17.9 % (11.5-14.5); WHITE BLOOD CELL COUNT,WBC 5.38 10^3/uL (5.00-10.00)
[2025-06-21 15:05] LABS: ALANINE AMINOTRANSFERASE,ALT 126.0 U/L (14-63); ASPARTATE AMNIOTRANSFERASE,AST 74.0 U/L (15-37); BILIRUBIN TOTAL 0.3 mg/dL (0.2-1.0); BLOOD UREA NITROGEN,BUN 6.0 mg/dL (7-18); CARBON DIOXIDE,CO2 28.0 mmol/L (21.0-32.0); CHLORIDE,CL 108.0 mmol/L (98-107); CREATININE 0.62 mg/dL (0.51-1.17); EST CRCL DRUG DOSING (CG) 118.3 mL/min; ESTIMATED GFR 122.0 mL/min (>=60); GLUCOSE RANDOM 107.0 mg/dL (70-140); POTASSIUM,K 3.4 mmol/L (3.5-5.1); PROTEIN TOTAL,TP 6.8 g/dL (6.4-8.2); SODIUM,NA 146.0 mmol/L (136-145)
[2025-06-21 15:06] LABS: ETHANOL BLOOD MEDICAL 394.0 mg/dL (<3)
[2025-06-21 15:56] LABS: APPEARANCE,URINE CLEAR (CLEAR); GLUCOSE,URINE NEGATIVE (NEGATIVE); OCCULT BLOOD,URINE NEGATIVE (NEGATIVE)
[2025-06-21 16:01] LABS: SQUAMOUS EPITHELIAL CELLS,UR FEW /HPF (NOT SEEN)
[2025-06-21 16:02] LABS: AMPHETAMINES SCREEN, URINE NEGATIVE (NEGATIVE); METHAMPHETAMINES SCREEN, URINE NEGATIVE (NEGATIVE)
[2025-06-21 16:03] LABS: COCAINE METABOLITES,URINE NEGATIVE (NEGATIVE); METHADONE SCREEN, URINE NEGATIVE (NEGATIVE); OXYCODONE SCREEN,URINE NEGATIVE (NEGATIVE); PCP SCREEN,URINE NEGATIVE (NEGATIVE); TCA SCREEN,URINE NEGATIVE (NEGATIVE); THC SCREEN,URINE 50 NG/ML NEGATIVE (NEGATIVE)
[2025-06-21] MEDS: Ondansetron 4 MG/2 ML SDV IVPUSH ONE (16:15)
[2025-06-21] MEDS: Bacitracin/Neomycin/Polymyxin B Oint 28.4 GM Tube TOP ONE (16:18)
[2025-06-21] MEDS ORDERED: LORazepam 2 MG/ML SDV IV PRN (16:45)
[2025-06-21] MEDS: PHENobarbitaL sodium 260 MG in Sodium Chloride 0.9% 100 ML IV ONE (17:13)
[2025-06-22] MEDS: Bacitracin/Neomycin/Polymyxin B Oint 0.9 GM U/D Packet TOP SCH (01:27)
[2025-06-22] MEDS: Ondansetron 4 MG Tab.DIS PO PRN (01:29)
[2025-06-22] MEDS: Ondansetron 4 MG/2 ML SDV IVPUSH PRN (09:39)
[2025-06-22 15:14] VITALS: BP 117/80; PULSE 87
== END 2025-06-22 15:11 | disposition home or self-care (01) | DRG 897 ==
LOC: KA.ED 14:06 → KA.MS 16:19
PROVIDERS: ADMIT Family Medicine; ATTEND Family Medicine
DX: F10.139 Alcohol abuse with withdrawal, unspecified (principal); K50.90 Crohn's disease, unspecified, without complications; Z68.41 Body mass index [BMI] 40.0-44.9, adult; N39.0 Urinary tract infection, site not specified; Y90.8 Blood alcohol level of 240 mg/100 ml or more; H54.7 Unspecified visual loss; I10 Essential (primary) hypertension; M19.90 Unspecified osteoarthritis, unspecified site; M54.9 Dorsalgia, unspecified; F41.9 Anxiety disorder, unspecified; F32.A Depression, unspecified; F10.120 Alcohol abuse with intoxication, uncomplicated; E66.9 Obesity, unspecified; F17.200 Nicotine dependence, unspecified, uncomplicated; K21.9 Gastro-esophageal reflux disease without esophagitis; Z86.16 Personal history of COVID-19; Z88.8 Allergy status to other drugs, medicaments and biological substances; Z88.6 Allergy status to analgesic agent; Z79.899 Other long term (current) drug therapy; Z98.84 Bariatric surgery status; Z90.721 Acquired absence of ovaries, unilateral
CPT/HCPCS: 80053; 80179; 80305; 80307; 81001; 83605; 83735; 85025; 96360; 99285; J2405; J7030 ×2; Q3014; A9270-GY; J0696; J2560

== ENCOUNTER 2025-06-25 14:11 | Emergency (ER) | payer MEDICAID ==
[~2025-06-25 14:11] MED LIST changes: +Bacitracin/Neomycin/Polymyxin B Oint 0.9 GM U/D Packet ONE; -Ondansetron 4 MG/2 ML SDV ONE; -Sodium Chloride 0.9% 1,000 ML ONE
[2025-06-25 14:47] LABS: BASOPHILS ABSOLUTE AUTO 0.04 10^3/uL (0.00-0.10); BASOPHILS PERCENT AUTO 0.8 % (0.0-1.0); EOSINOPHILS ABSOLUTE AUTO 0.01 10^3/uL (0.10-0.30); EOSINOPHILS PERCENT AUTO 0.2 % (1.0-3.0); IMMATURE GRAN ABSOLUTE AUTO 0.01 10^3/uL (0.00-0.04); IMMATURE GRAN PERCENT AUTO 0.2 % (0.0-0.4); LYMPHOCYTES ABSOLUTE AUTO 1.69 10^3/uL (1.00-4.00); LYMPHOCYTES PERCENT AUTO 34.4 % (20.0-40.0); MEAN PLATELET VOLUME 9.0 fL (7.4-10.4); MONOCYTES ABSOLUTE AUTO 0.35 10^3/uL (0.10-0.80); MONOCYTES PERCENT AUTO 7.1 % (2.0-8.0); NEUTROPHILS ABSOLUTE AUTO 2.81 10^3/uL (2.50-7.00); NEUTROPHILS PERCENT AUTO 57.3 % (50.0-70.0); PLATELET COUNT,PLT 182 10^3/uL (150-400); RED BLOOD CELL COUNT 4.46 10^6/uL (3.80-5.50); RED CELL DISTRIBUTION WIDTH 18.9 % (11.5-14.5); WHITE BLOOD CELL COUNT,WBC 4.91 10^3/uL (5.00-10.00)
[2025-06-25 15:02] LABS: ALANINE AMINOTRANSFERASE,ALT 77 U/L (14-63); ASPARTATE AMNIOTRANSFERASE,AST 38 U/L (15-37); BILIRUBIN TOTAL 0.3 mg/dL (0.2-1.0); BLOOD UREA NITROGEN,BUN 6 mg/dL (7-18); CARBON DIOXIDE,CO2 27.9 mmol/L (21.0-32.0); CHLORIDE,CL 104 mmol/L (98-107); CREATININE 0.67 mg/dL (0.51-1.17); GLUCOSE RANDOM 136 mg/dL (70-140); POTASSIUM,K 3.2 mmol/L (3.5-5.1); PROTEIN TOTAL,TP 6.8 g/dL (6.4-8.2); SODIUM,NA 143 mmol/L (136-145)
[2025-06-25 15:05] LABS: ESTIMATED GFR 120 mL/min (>=60); ETHANOL BLOOD MEDICAL < 3 mg/dL (<3)
[2025-06-25 16:17] LABS: APPEARANCE,URINE CLEAR (CLEAR); GLUCOSE,URINE NEGATIVE (NEGATIVE)
[2025-06-25 16:25] LABS: EPITHELIAL CELLS,URINE RARE /LPF; OCCULT BLOOD,URINE SMALL (NEGATIVE)
[2025-06-25 16:28] LABS: AMPHETAMINES SCREEN, URINE NEGATIVE (NEGATIVE); COCAINE METABOLITES,URINE NEGATIVE (NEGATIVE); METHADONE SCREEN, URINE NEGATIVE (NEGATIVE); METHAMPHETAMINES SCREEN, URINE NEGATIVE (NEGATIVE); OXYCODONE SCREEN,URINE NEGATIVE (NEGATIVE); PCP SCREEN,URINE NEGATIVE (NEGATIVE); TCA SCREEN,URINE NEGATIVE (NEGATIVE); THC SCREEN,URINE 50 NG/ML NEGATIVE (NEGATIVE)
[2025-06-25] MEDS: Ondansetron 4 MG/2 ML SDV IVPUSH ONE (16:46)
[2025-06-25 18:24] VITALS: BP 105/70; PULSE 85
== END 2025-06-25 18:33 ==
LOC: KA.ED 14:11
DX: F13.10 Sedative, hypnotic or anxiolytic abuse, uncomplicated (principal); R41.82 Altered mental status, unspecified; I10 Essential (primary) hypertension; Z79.51 Long term (current) use of inhaled steroids; Z79.899 Other long term (current) drug therapy; Z88.8 Allergy status to other drugs, medicaments and biological substances; Z86.16 Personal history of COVID-19
CPT/HCPCS: 36415; 70450; 80053; 80143; 80179; 80305; 80307; 81001; 85025; 96361; 96374; 99285; A9270; J2405; J7030

== ENCOUNTER 2025-07-23 15:55 | Emergency (ER) | payer MEDICAID ==
[2025-07-23 16:13] LABS: BASOPHILS ABSOLUTE AUTO 0.03 10^3/uL (0.00-0.10); BASOPHILS PERCENT AUTO 0.3 % (0.0-1.0); EOSINOPHILS ABSOLUTE AUTO 0.00 10^3/uL (0.10-0.30); EOSINOPHILS PERCENT AUTO 0.0 % (1.0-3.0); IMMATURE GRAN ABSOLUTE AUTO 0.03 10^3/uL (0.00-0.04); IMMATURE GRAN PERCENT AUTO 0.3 % (0.0-0.4); LYMPHOCYTES ABSOLUTE AUTO 2.09 10^3/uL (1.00-4.00); LYMPHOCYTES PERCENT AUTO 18.6 % (20.0-40.0); MEAN PLATELET VOLUME 9.4 fL (7.4-10.4); MONOCYTES ABSOLUTE AUTO 0.53 10^3/uL (0.10-0.80); MONOCYTES PERCENT AUTO 4.7 % (2.0-8.0); NEUTROPHILS ABSOLUTE AUTO 8.57 10^3/uL (2.50-7.00); NEUTROPHILS PERCENT AUTO 76.1 % (50.0-70.0); PLATELET COUNT,PLT 472 10^3/uL (150-400); RED BLOOD CELL COUNT 4.96 10^6/uL (3.80-5.50); RED CELL DISTRIBUTION WIDTH 18.3 % (11.5-14.5); WHITE BLOOD CELL COUNT,WBC 11.25 10^3/uL (5.00-10.00)
[2025-07-23] MEDS: Ondansetron 4 MG/2 ML SDV IVPUSH ONE ×2 (16:22→18:16)
[2025-07-23] MEDS: Ondansetron 4 MG/2 ML SDV ONE (16:22)
[2025-07-23 16:33] LABS: ALANINE AMINOTRANSFERASE,ALT 22 U/L (14-63); ASPARTATE AMNIOTRANSFERASE,AST 12 U/L (15-37); BILIRUBIN TOTAL 0.2 mg/dL (0.2-1.0); BLOOD UREA NITROGEN,BUN 7 mg/dL (7-18); CARBON DIOXIDE,CO2 25.0 mmol/L (21.0-32.0); CHLORIDE,CL 107 mmol/L (98-107); CREATININE 0.60 mg/dL (0.51-1.17); EST CRCL DRUG DOSING (CG) 122.25 mL/min; GLUCOSE RANDOM 134 mg/dL (70-140); POTASSIUM,K 3.9 mmol/L (3.5-5.1); PROTEIN TOTAL,TP 7.3 g/dL (6.4-8.2); SODIUM,NA 144 mmol/L (136-145)
[2025-07-23 16:35] LABS: ESTIMATED GFR 123 mL/min (>=60)
[2025-07-23 16:36] LABS: ETHANOL BLOOD MEDICAL < 3 mg/dL (<3)
[2025-07-23] MEDS: diphenhydrAMINE 50 MG/ML SDV IVPUSH ONE (18:15)
[2025-07-23] MEDS: Ketorolac 30 MG/ML SDV IVPUSH ONE (18:16)
[2025-07-23] MEDS: Ondansetron 4 MG Tab.DIS PO ONE (18:39)
[2025-07-23 20:34] VITALS: BP 101/59; PULSE 77
== END 2025-07-23 20:04 | disposition home or self-care (01) ==
LOC: KA.ED 16:00
DX: F10.10 Alcohol abuse, uncomplicated (principal); I10 Essential (primary) hypertension; Z79.899 Other long term (current) drug therapy; Z86.16 Personal history of COVID-19; Z88.8 Allergy status to other drugs, medicaments and biological substances; Y90.0 Blood alcohol level of less than 20 mg/100 ml
CPT/HCPCS: 36415; 80053; 80143; 80179; 80307; 85025; 96361; 96374; 96375; 96376; 99284-25; A9270-GY; J1200; J1885; J2405; J7030